=== PATIENT | male | born 1970 | race Caucasian/White ===

== ENCOUNTER 2022-04-20 15:05 | Outpatient (CLI) | payer BC ==
[2022-04-20 16:21] LABS: #Eosinphils 0.2 10x3/uL (0.0-0.5); #Monocytes 0.5 10x3/uL (0.0-1.1); #Neutrophils 5.2 10x3/uL (1.5-8.4); %Basophils 0.4 % (0.0-2.0); %Lymphocytes 23.3 % (18.0-47.0); %Monocytes 6.3 % (0.0-10.0); %Neutrophils 66.6 % (40.0-75.0); Hemoglobin 15.1 g/dL (13.5-17.5); Mean Corpuscular Hemoglobin 30.3 pg (27.0-33.0); Mean Platelet Volume 10.6 fl (7.4-10.4); Platelet Count 314 10x3/uL (150-450); RBC Distribution Width 13.2 % (11.5-14.5); Red Blood Cell (RBC) Count 4.99 10x6/uL (4.32-5.72); White Blood Cell (WBC) Count 7.8 10x3/uL (3.5-10.5)
== END 2022-04-20 15:06 | disposition home or self-care (01) ==
LOC: LABBT 15:05
PROVIDERS: ATTEND Orthopaedic Surgery Hand Surgery
DX: Z01.812 Encounter for preprocedural laboratory examination (principal); S62.502A Fracture of unspecified phalanx of left thumb, initial encounter for closed fracture; Z20.822 Contact with and (suspected) exposure to COVID-19
CPT/HCPCS: 85025; 87811

== ENCOUNTER 2022-04-24 08:50 | Day surgery (SDC) | payer BC ==
[2022-04-20 15:38] VITALS: BMI 23.6
[2022-04-24] MEDS ORDERED: Bupivacaine PF 0.5% 30 ML VIAL ONE (08:53)
[2022-04-24] MEDS ORDERED: Bacitracin Zinc Ointment 30 gm TUBE ONE (08:53)
[2022-04-24] MEDS ORDERED: Neomycin-Polymyxin 1 ML AMP ONE (08:53)
[2022-04-24] MEDS ORDERED: Midazolam HCl 2 mg/2 ml Vial ONE ×2 (08:56→09:01)
[2022-04-24] MEDS ORDERED: hydrALAZINE 20 MG/ML VIAL ONE (08:56)
[2022-04-24] MEDS ORDERED: fentaNYL Citrate/PF 100 MCG/2 ML SYRINGE ONE (08:56)
[2022-04-24] MEDS ORDERED: Sodium Chloride 0.9% 100 ML ONE (09:05)
[2022-04-24] MEDS ORDERED: CEFAZOLIN 2 GM VIAL ONE (09:05)
[2022-04-24] MEDS ORDERED: Lidocaine 1% PF 5 ML VIAL ONE (09:24)
[2022-04-24] MEDS ORDERED: Ondansetron PF 4 MG/2 ML Vial ONE (09:24)
[2022-04-24] MEDS ORDERED: PROPOFOL 200 MG/20 ML VIAL ONE (09:24)
[2022-04-24] MEDS ORDERED: ePHEDrine 50 MG/ML VIAL ONE (09:24)
[2022-04-24] MEDS ORDERED: Dexamethasone 20 MG/5 ML VIAL ONE (09:24)
[2022-04-24] MEDS ORDERED: Phenylephrine 10 MG/ML VIAL ONE (09:24)
[2022-04-24] MEDS ORDERED: Ketorolac Tromethamine 30 MG/ML VIAL ONE (11:38)
[2022-04-24] MEDS ORDERED: Fentanyl 100 MCG/2 ML VIAL ONE ×2 (11:44→12:02)
== END 2022-04-24 13:36 | disposition home or self-care (01) ==
LOC: SDC 08:50
PROVIDERS: ATTEND Orthopaedic Surgery Hand Surgery
PROC: 0PSR04Z Reposition Right Thumb Phalanx with Internal Fixation Device, Open Approach (ICD-10-PCS; principal; 2022-04-24)
DX: S62.521A Displaced fracture of distal phalanx of right thumb, initial encounter for closed fracture (principal); I10 Essential (primary) hypertension; G89.4 Chronic pain syndrome; Z86.16 Personal history of COVID-19; Z79.1 Long term (current) use of non-steroidal anti-inflammatories (NSAID); Z79.891 Long term (current) use of opiate analgesic; W21.07XA Struck by softball, initial encounter; Y93.64 Activity, baseball
CPT/HCPCS: 76000; C1894; J0360; J0690; J1100; J1885; J2250; J2370; J2405; J2704; J3010; J3490; S0020

== ENCOUNTER 2022-11-05 12:55 | Day surgery (SDC) | payer BC ==
[2022-11-02 14:09] VITALS: BMI 23.6
[2022-11-05] MEDS ORDERED: Bacitracin Zinc Ointment 30 gm TUBE ONE (15:26)
[2022-11-05] MEDS ORDERED: Bupivacaine PF 0.5% 30 ML VIAL ONE (15:26)
[2022-11-05] MEDS ORDERED: Sodium Chloride 0.9% 100 ML ONE (15:31)
[2022-11-05] MEDS ORDERED: CEFAZOLIN 2 GM VIAL ONE (15:31)
[2022-11-05] MEDS ORDERED: fentaNYL PF 100 MCG/2 ML SYRINGE ONE ×2 (15:38→15:39)
[2022-11-05] MEDS ORDERED: Midazolam HCl 2 mg/2 ml Vial ONE (15:39)
[2022-11-05] MEDS ORDERED: Ondansetron PF 4 MG/2 ML Vial ONE (15:46)
[2022-11-05] MEDS ORDERED: PROPOFOL 200 MG/20 ML VIAL ONE (15:46)
[2022-11-05] MEDS ORDERED: Lidocaine 1% PF 5 ML VIAL ONE (15:46)
[2022-11-05] MEDS ORDERED: Dexamethasone 20 MG/5 ML VIAL ONE (15:46)
[2022-11-05] MEDS ORDERED: Morphine 2 MG/ML VIAL ONE ×3 (16:40→17:16)
[2022-11-05] MEDS ORDERED: Promethazine HCl 25 MG/ML VIAL ONE (16:41)
[2022-11-05] MEDS ORDERED: Ondansetron HCl/PF 4 MG/2 ML Vial IVP PRN (16:41)
[2022-11-05] MEDS ORDERED: Meperidine HCl/PF 25 MG/ML VIAL SLOW IVP PRN (16:41)
[2022-11-05] MEDS ORDERED: Promethazine HCl 25 MG/ML VIAL IM PRN (16:41)
[2022-11-05] MEDS ORDERED: PACU-Morphine 4MG/ML VIAL SLOW IVP PRN (16:41)
[2022-11-05] MEDS ORDERED: Ketorolac Tromethamine 30 MG/ML VIAL ONE (16:59)
[2022-11-05] MEDS ORDERED: Labetalol HCl 100 MG/20 ML VIAL ONE (17:01)
[2022-11-05] MEDS ORDERED: HYDROcodone/Acetaminophen 5/325 mg Tablet ONE (17:26)
[2022-11-05] MEDS ORDERED: cloNIDine 0.1 MG TAB ONE (17:53)
== END 2022-11-05 18:32 | disposition home or self-care (01) ==
LOC: SDC 12:55
PROVIDERS: ATTEND Orthopaedic Surgery Hand Surgery
PROC: 0PPT04Z Removal of Internal Fixation Device from Right Finger Phalanx, Open Approach (ICD-10-PCS; principal; 2022-11-05)
DX: T84.84XA Pain due to internal orthopedic prosthetic devices, implants and grafts, initial encounter (principal); I10 Essential (primary) hypertension; J30.1 Allergic rhinitis due to pollen; J30.81 Allergic rhinitis due to animal (cat) (dog) hair and dander; J30.89 Other allergic rhinitis; Z79.899 Other long term (current) drug therapy; Z88.2 Allergy status to sulfonamides; Y79.3 Surgical instruments, materials and orthopedic devices (including sutures) associated with adverse incidents
CPT/HCPCS: J1100; J1885; J2250; J2272; J2405; J2550; J2704; J3490; S0020

== ENCOUNTER 2024-09-25 09:56 | Outpatient (CLI) | payer OTHER ==
[2024-09-25 10:57] LABS: #Basophils 0.04 10x3/uL (0.0-0.2); %Basophils 0.5 % (0.0-1.0); %Eosinophils 1.6 % (0.0-10.0); %Lymphocytes 25.1 % (21.0-51.0); %Monocytes 6.6 % (0.0-10.0); %Neutrophils 65.9 % (42.0-75.0); Hematocrit 46.8 % (42.0-52.0); Hemoglobin 15.9 g/dL (14.0-18.0); Mean Corpuscular Hemoglobin 30.1 pg (27.0-31.0); Mean Corpuscular Volume 88.6 fL (78.0-98.0); Mean Platelet Volume 10.1 fL (7.4-10.4); Platelet Count 327 10x3/uL (130-400); RBC Distribution Width 13.1 % (11.5-14.5); Red Blood Cell (RBC) Count 5.28 mill/uL (4.70-6.10)
[2024-09-25 11:14] LABS: INR-International Normal Ratio 0.9; Prothrombin Time 12.3 sec (12.0-14.7)
[2024-09-25 11:15] LABS: PTT 27.3 sec (22.9-36.1)
== END 2024-09-25 09:57 | disposition home or self-care (01) ==
LOC: LABBT 09:56
PROVIDERS: ATTEND Orthopaedic Surgery
DX: Z01.818 Encounter for other preprocedural examination (principal); M51.16 Intervertebral disc disorders with radiculopathy, lumbar region; M48.061 Spinal stenosis, lumbar region without neurogenic claudication
CPT/HCPCS: 85025; 85610; 85730; 93005; 93010